=== PATIENT | male | born 1960 | race Caucasian/White ===

== ENCOUNTER 2018-07-17 05:55 | Inpatient (IN) ==
[2018-07-17] MEDS ORDERED: Metoprolol Tartrate 25 MG Tablet PO ONE (06:31)
[2018-07-17] MEDS ORDERED: Chlorhexidine Gluconate 2% 1 Pack (2 Cloths) TOPICAL ONE (06:31)
[2018-07-17] MEDS ORDERED: Bupivacaine PF 0.5% Inj 30 ML Vial ONE (06:56)
[2018-07-17] MEDS ORDERED: Sodium Chlor 0.9% Inj 500 ML IV.SIG SCH (07:00)
[2018-07-17] MEDS ORDERED: Phenylephrine/NS 1000 MCG/10ML Syringe IV.PUSH ONE (08:12)
[2018-07-17] MEDS ORDERED: Lidocaine PF 1% Inj 5 ML Syringe OTHER ONE (08:12)
[2018-07-17] MEDS ORDERED: fentaNYL Citrate Inj 100 MCG/2 ML Ampul ONE (09:27)
[2018-07-17] MEDS ORDERED: HYDROmorphone PF Inj 2 MG/ML Vial ONE (09:27)
[2018-07-17] MEDS ORDERED: Sugammadex Inj 200 MG/2 ML Vial IV.PUSH ONE (11:14)
--- NOTE | 2018-07-17 13:03 | P.OP ---
- Preoperative Diagnosis (1) Prostate cancer - Postoperative Diagnosis (1) Prostate cancer Date of procedure: 07/17/18 Procedure: Radical retropubic prostatectomy with bilateral pelvic lymph node dissection Anesthesia: MANAS Surgeon: Rodger Sylvester DO Ice Rink Attendant: Nikhil Carpenter Estimated blood loss (mL): 900 IV fluids (mL): 3,500 Pathology: other (Right and left obturator lymph nodes and prostate gland with seminal vesicles) Operation and Findings: 58-year-old male with history of Gela 3+4 = 7 prostate cancer who elected to undergo radical retropubic prostatectomy with bilateral pelvic lymph node dissection. Risk and benefits were discussed preoperative patient is willing to proceed. Patient was brought to the operating room and identified by myself as Lane Santana. He is placed on the operating table in the supine position, prepped draped you sterile fashion, received preprocedure antibiotics and general endotracheal tube anesthesia was administered. 20 Korean Jeronimo catheter was inserted into the bladder. 15 blade was used to make the opening incision extending from the symphysis pubis up to the umbilicus. Sheldon's and camper's fascia were entered. The linea alba was identified and the rectus muscle was on each side. Perivesical fat was then identified and swept laterally. Each pelvic sidewall was identified in the external iliac vein was also identified. Dissection below the external iliac vein then pursued on the left side and the obturator packet was removed using Metzenbaum Scissors and the clips. This was then repeated on the right side. The obturator nerve on both sides was identified and preserved. Once that was completed, the denovavia's fascia was incised with the Metzenbaum scissors on each side. Attention was then directed to the dorsal vein complex. The puboprostatic ligaments on each sides of the prostate were cut with the Jordi scissors. Beckie clamp was used to grasp the dorsal vein complex and then 2-0 silk sutures were then used to tie a proximal and distal end of the dorsal vein complex. Metzenbaum scissors were then used to cut through the dorsal vein complex until I could palpably the Jeronimo catheter. Umbilical tape was then slid underneath the Jeronimo catheter. The anterior aspect of the urethra was then cut and the Jeronimo catheter was then identified. Using a right angle clamp the Jeronimo catheter was then elevated and clamped and then clot. Jeronimo balloon remained filled within the bladder. The plane between the rectum and the prostate was identified and using my index finger it was . The lateral pedicles on each side were then dissected freely with the right angle clamp and 0 silk ties. The pedicles were taken down on each side. A small incision was made over the area of the vas deferens and seminal vesicles until they were identified. A right angle clamp was used to elevate both the vas deferens and the seminal vesicles on each side. The vas deferens was ligated and then cut. Each seminal vesicle on both side was then dissected freely and remained with the specimen. The remaining bladder neck was then dissected circumferentially to separate it from the prostate gland. The specimen was then delivered from the field. The bladder neck was then everted with 4-0 chromic sutures to create a [place] appearance. The Haydee retractor was then passed in through the penile urethra and then 2-0 Vicryl sutures on a needle was then placed in the 12:00, 6:00, 9:00, and 3:00 positions at the base of the urethra. A 20 Korean Jeronimo catheter was then inserted after the Benton retractor was removed. The balloon was then inflated with 15 cc of sterile water inside the bladder. The bladder neck sutures were then brought together and the bladder was brought down and tied at the 4 points of attachment. A 10 Korean PRAMOD drain was then left in position around the bladder neck. The wound was then irrigated copiously with sterile water and a 0 looped PDS was then used to close the fascia and yahaira were then used to close the skin. Dressings were applied and the patient was awoken and extubated and transferred recovery in stable condition. He tolerated the procedure well was stable throughout the entire case.
[2018-07-17 13:06] LABS: Hematocrit 34.4 % (39.0-51.0); Hemoglobin 11.7 gm/dL (13.0-17.0)
[2018-07-17] MEDS ORDERED: HYDROmorphone PCA Inj 6 MG/30 ML PCA.VIAL PCA ONE (13:26)
[2018-07-17] MEDS ORDERED: Naloxone Inj 0.4 MG/ML Vial IV.PUSH PRN (13:50)
[2018-07-17 13:56] LABS: Hematocrit 34.4 % (39.0-51.0); Hemoglobin 12.4 gm/dL (13.0-17.0); Mean Corpuscular HGB Conc 35.9 % (32.0-36.0); Mean Corpuscular Hemoglobin 31.7 pg (27.0-34.0); Mean Corpuscular Volume 88.1 fL (80.0-100.0); Mean Platelet Volume 10.5 fL (7.0-11.0); Platelet Count 185 th/mm3 (150-450); Red Cell Distribution Width 13.2 % (11.6-17.2)
[2018-07-17] MEDS: HYDROmorphone PCA Inj 6 MG/30 ML PCA.VIAL PCA PRN (13:58)
[2018-07-17] MEDS ORDERED: HYDROmorphone PF Inj 1 MG/ML Ampul IV.PUSH ONE (14:00)
[2018-07-17 14:07] LABS: Anion Gap 10 meq/L (5-15); Blood Urea Nitrogen 15 mg/dL (7-18); Calcium 7.3 mg/dL (8.5-10.1); Carbon Dioxide 24.4 meq/L (21.0-32.0); Chloride 107 meq/L (98-107); Glomerular Filtration Rate Greater Than 89 mL/min (>89); Glucose,Random 182 mg/dL (74-106); Potassium 4.1 meq/L (3.5-5.1); Sodium 141 meq/L (136-145)
[2018-07-17] MEDS ORDERED: *Ondansetron Inj 4 MG/2 ML Vial PERIprocedural Use ONLY ONE (14:15)
[2018-07-17 14:18] LABS: Total Protein 5.4 g/dL (6.4-8.2)
[2018-07-17] MEDS: ceFAZolin 1 GM Premix Inj 1 GM/50 ML FROZ.PIGGY IV.SIG SCH (20:59)
[2018-07-18] MEDS: ceFAZolin 1 GM Premix Inj 1 GM/50 ML FROZ.PIGGY IV.SIG SCH (04:47)
--- NOTE | 2018-07-18 09:10 | P.PNURO ---
Subjective Patient symptoms today: Pt seen and examined. Feels well. Anxious Objective Vital Signs: Vital Signs 07/17/18 13:03 07/17/18 13:15 07/17/18 13:30 Temperature 98.7 F Pulse Rate 98 H 100 H 104 H Respiratory Rate 20 21 22 Blood Pressure 145/68 H 134/63 148/68 H Pulse Oximetry 98 95 96 07/17/18 13:45 07/17/18 14:00 07/17/18 14:05 Temperature Pulse Rate 97 H 96 H Respiratory Rate 19 16 Blood Pressure 129/58 L 124/58 L Pulse Oximetry 94 L 96 96 07/17/18 14:15 07/17/18 16:00 07/17/18 18:58 Temperature 98 F 97.9 F Pulse Rate 95 H 103 H Respiratory Rate 14 17 18 Blood Pressure 124/59 L 133/72 Pulse Oximetry 97 98 07/17/18 20:00 07/18/18 00:00 07/18/18 04:00 Temperature 98.5 F 98.3 F 98.8 F Pulse Rate 101 H 96 H 93 H Respiratory Rate 18 17 18 Blood Pressure 127/64 117/60 134/60 Pulse Oximetry 96 98 96 Intake & Output 07/17/18 07/18/18 07/18/18 18:59 06:59 18:59 Intake Total 3400 / 3400 1700 / 1700 Output Total 1730 / 1730 2960 / 2960 Balance 1670 / 1670 -1260 / -1260 Weight 84.8 kg Intake: IV 1100 / 1100 1100 / 1100 LR 1000 mL Inj 1,000 ML @ 100 1000 / 1000 mls/hr IV.CONT .Q10H [facility] Rx#: [id number] LR 1000 mL Inj 1,000 ML @ 30 1000 / 1000 mls/hr IV.SIG .Q24H [facility] Rx#: [id number] Ancef 1 GM Premix Inj 1 gm In 100 / 100 50 ml @ 100 mls/hr IV.SIG Q8H [facility] Rx#:[id number] Ancef Inj 1,000 MG In NS Inj 100 / 100 100 ML @ 100 mls/hr IV.SIG ONCE ONE Rx#:[id number] Oral 600 / 600 Anesthesia Amount 2300 / 2300 Output: Urine 600 / 600 Estimated Blood Loss 900 / 900 Urine Amount (Catheter) 750 / 750 2300 / 2300 Indwelling Urethral Catheter 750 / 750 2300 / 2300 Wound Drainage 80 / 80 60 / 60 # 1 Left Abdomen 80 / 80 60 / 60 Result Diagrams: 07/17/18 13:23 07/17/18 13:23 Medications and IVs: Active Medications Generic Name Dose Route Start Last Admin Trade Name Freq PRN Reason Stop Dose Admin Acetaminophen 650 mg 07/17/18 13:15 07/18/18 00:08 Tylenol Liq PO 650 mg Q6H PRN Administration FEVER > 100.4 F AND HEADACHE Diphenhydramine HCl 25 mg 07/17/18 13:50 Benadryl Inj IV.PUSH Q6H PRN for itching Duloxetine HCl 30 mg 07/18/18 09:00 Cymbalta PO DAILY [facility] Sodium Chloride 500 mls @ 30 mls/hr 07/17/18 07:00 07/17/18 07:02 Ns Inj IV.SIG Not Given .Q10H [facility] Lactated Ringer's 1,000 mls @ 100 mls/hr 07/17/18 13:15 07/18/18 04:49 Lr 1000 Ml Inj IV.CONT 100 mls/hr .Q10H [facility] Administration Hydromorphone/Sodium Chloride 6 mg in 30 mls @ 0 mls/hr 07/17/18 13:50 06:23 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
[2018-07-18] MEDS ORDERED: Sodium Chloride 0.9% 2 ML Flush PRN IV.FLUSH (10:08)
[2018-07-18] MEDS: Sodium Chloride 0.9% 2 ML Flush BID IV.FLUSH SCH (20:38)
[2018-07-19] MEDS: HYDROmorphone PCA Inj 6 MG/30 ML PCA.VIAL PCA PRN (03:17)
[2018-07-19] MEDS: Sodium Chloride 0.9% 2 ML Flush BID IV.FLUSH SCH ×2 (09:05→23:44)
[2018-07-19] MEDS ORDERED: HYDROmorphone PF Inj 2 MG/ML Vial IV.PUSH PRN (09:27)
--- NOTE | 2018-07-19 09:30 | P.PNURO ---
Subjective Patient symptoms today: Pt seen and examined. Feels rough Objective Vital Signs: Vital Signs 07/18/18 16:00 07/18/18 20:00 07/19/18 00:00 Temperature 98.1 F 99.6 F 98.8 F Pulse Rate 65 91 H 101 H Respiratory Rate 17 19 18 Blood Pressure 125/74 174/75 H 154/71 H Pulse Oximetry 96 94 L 95 07/19/18 03:50 07/19/18 04:00 07/19/18 08:00 Temperature 98.5 F 98.6 F Pulse Rate 91 H 97 H Respiratory Rate 18 18 17 Blood Pressure 150/85 H 153/72 H Pulse Oximetry 95 95 Intake & Output 07/18/18 07/19/18 07/19/18 18:59 06:59 18:59 Intake Total 1000 / 1000 1989 Output Total 3700 / 3700 630 / 630 Balance -2700 / -2700 1360 / 1360 Weight 81.8 kg Intake: IV 1000 / 1000 1750 / 1750 LR 1000 mL Inj 1,000 ML @ 100 1000 / 1000 1750 / 1750 mls/hr IV.CONT .Q10H [facility] Rx#: [id number] Oral 240 / 240 Output: Urine 600 / 600 Urine Amount (Catheter) 3620 / 3620 Indwelling Urethral Catheter 3620 / 3620 Wound Drainage 80 / 80 30 / 30 # 1 Left Abdomen 80 / 80 30 / 30 Result Diagrams: 07/17/18 13:23 07/17/18 13:23 Medications and IVs: Active Medications Generic Name Dose Route Start Last Admin Trade Name Freq PRN Reason Stop Dose Admin Acetaminophen 650 mg 07/17/18 13:15 07/18/18 10:15 Tylenol Liq PO 650 mg Q6H PRN Administration FEVER > 100.4 F AND HEADACHE Diphenhydramine HCl 25 mg 07/17/18 13:50 Benadryl Inj IV.PUSH Q6H PRN for itching Duloxetine HCl 30 mg 07/18/18 09:00 07/19/18 09:04 Cymbalta PO 30 mg DAILY [facility] Administration Hydromorphone HCl 2 mg 07/19/18 09:27 Dilaudid Pf Inj IV.PUSH Q4H PRN ABDOMINAL PAIN Sodium Chloride 500 mls @ 30 mls/hr 07/17/18 07:00 07/17/18 07:02 Ns Inj IV.SIG Not Given .Q10H [facility] Lactated Ringer's 1,000 mls @ 100 mls/hr 07/17/18 13:15 07/19/18 07:24 Lr 1000 Ml Inj IV.CONT 100 mls/hr .Q10H [facility] Administration Lorazepam 2 mg 07/18/18 09:10 07/19/18 03:17 Ativan PO 2 mg Q6H PRN Administration AGITATION Naloxone HCl 0.4 mg 07/17/18 13:50 Narcan Inj IV.PUSH PRN PRN SEE LABEL COMMENTS Ondansetron HCl 4 mg 07/17/18 13:12 07/19/18 07:31 Zofran Inj IV.PUSH 4 mg Q6H PRN Administration MILD NAUSEA Oxycodone/Acetaminophen 1 tab 07/19/18 09:28 Percocet 7.5/325 Mg PO Q6H PRN ABDOMINAL PAIN Sodium Chloride 2 ml 07/18/18 21:00 07/19/18 09:05 Ns Flush IV.FLUSH 2 ml BID LETY Administration Sodium Chloride 2 ml 07/18/18 10:08 Ns Flush IV.FLUSH PRN PRN FLUSH AFTER USING IV ACCESS Objective Remarks: Abd:soft,nt,nd Jeronimo with clear urine PRAMOD serous drainage 07/19 Abd:soft,nt,nd Jeronimo with clear urine PRAMOD serous drainage Assessment and Plan - Plan Stable POD#1 RRP OOB today Clear liquids. 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
[2018-07-19] MEDS ORDERED: Influenza (Quadrivalent) Vaccine 0.5 ML Syringe IM ONE (13:00)
--- NOTE | 2018-07-20 07:47 | P.PNURO ---
Subjective Patient symptoms today: Pt ready for d/c Objective Vital Signs: Vital Signs 07/19/18 08:00 07/19/18 08:12 07/19/18 11:44 Temperature 98.6 F 98.1 F Pulse Rate 97 H 90 Respiratory Rate 17 18 16 Blood Pressure 153/72 H 162/77 H Pulse Oximetry 95 94 L 07/19/18 12:00 07/19/18 16:00 07/19/18 20:00 Temperature 98.5 F 97.9 F 98.1 F Pulse Rate 98 H 100 H 100 H Respiratory Rate 18 18 18 Blood Pressure 143/73 H 141/68 H 119/60 Pulse Oximetry 93 L 96 95 07/20/18 00:00 07/20/18 03:17 07/20/18 04:00 Temperature 98.3 F 98.5 F Pulse Rate 94 H 96 H Respiratory Rate 18 20 18 Blood Pressure 145/89 H 141/74 H Pulse Oximetry 96 98 Intake & Output 07/19/18 07/20/18 07/20/18 18:59 06:59 18:59 Intake Total 1648 / 1648 897 / 897 Output Total 4505 / 4505 1650 / 1650 Balance -2857 / -2857 -753 / -753 Weight 79.6 kg Intake: IV 823 / 823 177 / 177 LR 1000 mL Inj 1,000 ML @ 100 823 / 823 177 / 177 mls/hr IV.CONT .Q10H [facility] Rx#: [id number] Oral 825 / 825 720 / 720 Output: Urine 900 / 900 Urine Amount (Catheter) 3600 / 3600 1650 / 1650 Indwelling Urethral Catheter 3600 / 3600 1650 / 1650 Wound Drainage 5 / 5 0 / 0 # 1 Left Abdomen 5 / 5 0 / 0 Other: # Bowel Movements 1 Result Diagrams: 07/17/18 13:23 07/17/18 13:23 Medications and IVs: Active Medications Generic Name Dose Route Start Last Admin Trade Name Freq PRN Reason Stop Dose Admin Acetaminophen 650 mg 07/17/18 13:15 07/18/18 10:15 Tylenol Liq PO 650 mg Q6H PRN Administration FEVER > 100.4 F AND HEADACHE Diphenhydramine HCl 25 mg 07/19/18 21:20 07/19/18 23:19 Benadryl PO 25 mg Q6H PRN Administration for itching Duloxetine HCl 30 mg 07/18/18 09:00 07/19/18 09:04 Cymbalta PO 30 mg DAILY LETY Administration Hydromorphone HCl 2 mg 07/19/18 09:27 Dilaudid Pf Inj IV.PUSH Q4H PRN ABDOMINAL PAIN Sodium Chloride 500 mls @ 30 mls/hr 07/17/18 07:00 07/17/18 07:02 Ns Inj IV.SIG Not Given .Q10H [facility] Lactated Ringer's 1,000 mls @ 100 mls/hr 07/17/18 13:15 07/20/18 03:19 Lr 1000 Ml Inj IV.CONT Not Given .Q10H [facility] Lorazepam 2 mg 07/18/18 09:10 07/20/18 05:46 Ativan PO 2 mg Q6H PRN Administration AGITATION Naloxone HCl 0.4 mg 07/17/18 13:50 Narcan Inj IV.PUSH PRN PRN SEE LABEL COMMENTS Ondansetron HCl 4 mg 07/17/18 13:12 07/20/18 05:47 Zofran Inj IV.PUSH 4 mg Q6H PRN Administration MILD NAUSEA Oxycodone/Acetaminophen 1 tab 07/19/18 09:28 07/20/18 05:46 Percocet 7.5/325 Mg PO 1 tab Q6H PRN Administration ABDOMINAL PAIN Sodium Chloride 2 ml 07/18/18 21:00 07/19/18 23:44 Ns Flush IV.FLUSH Not Given BID [facility]Y Sodium Chloride 2 ml 07/18/18 10:08 Ns Flush IV.FLUSH PRN PRN FLUSH AFTER USING IV ACCESS Objective Remarks: Abd:soft,nt,nd Jeronimo with clear urine PRAMOD serous drainage 07/19 Abd:soft,nt,nd Jeronimo with clear urine PRAMOD serous drainage 07/20 Abd:soft,nt,nd Jeronimo with clear urine PRAMOD serous drainage Assessment and Plan - Plan Stable POD#1 RRP OOB today Clear liquids. 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
[2018-07-20] MEDS: Sodium Chloride 0.9% 2 ML Flush BID IV.FLUSH SCH (08:21)
== END 2018-07-20 12:36 | disposition home or self-care (01) ==
LOC: HSDI 05:55 → N07 14:39
PROVIDERS: ADMIT Urology; ATTEND Urology